=== PATIENT | female | born 2000 | race African-American/Black ===

== ENCOUNTER 2018-04-08 10:53 | Emergency (ER) | payer MEDICAID ==
[~2018-04-08] VITALS: Ht 162.6 cm; Wt 60.0 kg
[2018-04-08] MEDS ORDERED: ACETAMINOPHEN 325MG TABLET PO STA (11:26)
[2018-04-08 11:53] LABS: BASOPHILS % 0.5 % (0.0-2.0); EOSINOPHILS % 0.5 % (0.0-5.0); HEMATOCRIT. 34.6 % (36.0-48.0); HEMOGLOBIN. 11.5 g/dL (12.0-16.0); LYMPHOCYTES % 23.9 % (20.0-50.0); MEAN CORPUSCULAR HEMOGLOBIN 28.8 pg (28.0-32.0); MEAN CORPUSCULAR VOLUME 86.2 fL (81.0-99.0); MEAN PLATELET VOLUME 9.8 fl (7.4-10.4); MONOCYTES % 6.6 % (2.0-8.0); NEUTROPHILS % 68.5 % (40.0-76.0); PLATELET 321 x1000/uL (130-400); RED BLOOD CELL COUNT 4.01 mill/uL (4.2-5.4); RED CELL DISTRIBUTION WIDTH 13.6 % (11.6-14.6)
[2018-04-08 12:07] LABS: CHLORIDE 103 mEq/L (98-107)
[2018-04-08 12:25] LABS: B-HCG QUANTITATIVE 153767 mIU/mL (<3)
[2018-04-08 13:08] VITALS: BP 104/60
== END 2018-04-08 13:56 | disposition home or self-care (01) ==
LOC: ER 10:53
DX: O26.891 Other specified pregnancy related conditions, first trimester (principal); S50.02XA Contusion of left elbow, initial encounter; R51 Headache; Z3A.11 11 weeks gestation of pregnancy; V03.10XA Pedestrian on foot injured in collision with car, pick-up truck or van in traffic accident, initial encounter; Y93.89 Activity, other specified; Y92.488 Other paved roadways as the place of occurrence of the external cause
CPT/HCPCS: 36415; 73080; 73562; 76830; 76856; 81025; 84702; 99285